=== PATIENT | male | born 1940 | race Caucasian/White ===

== ENCOUNTER 2019-03-23 03:04 | Emergency (ER) | payer MEDICARE ==
[~2019-03-23] VITALS: Ht 172.7 cm; Wt 77.1 kg
[~2019-03-23 03:04] MED LIST: AMIO200T33 PO; ASPI-498 OR; ATOR1TAB PO; BACL10TA PO; CARV6.25 PO; DOCU100T15 PO; DULO1CAP3 PO; EZET10TA6 PO; GABA300C10 PO; GLIM1TAB2 PO; LIDO5DIS21 TOP; METH5T PO; OXY5T PO; RANO1000 PO; ROPI0.5T PO; SENN1TAB14 PO
[2019-03-23 06:30] VITALS: BP 155/78
[2019-03-23] MEDS ORDERED: LIDOCAINE 1% HCL (LOCAL ANESTH.) INJ 20ML MDV ONE (07:30)
[2019-03-23] MEDS ORDERED: BACITRACIN-POLYMYXIN B TOPICAL OINT UD TOP ONE (07:45)
== END 2019-03-23 07:59 | disposition home or self-care (01) ==
LOC: ER 03:04
DX: S01.01XA Laceration without foreign body of scalp, initial encounter (principal); S61.412A Laceration without foreign body of left hand, initial encounter; S76.011A Strain of muscle, fascia and tendon of right hip, initial encounter; I48.91 Unspecified atrial fibrillation; I11.0 Hypertensive heart disease with heart failure; I50.9 Heart failure, unspecified; E78.5 Hyperlipidemia, unspecified; E07.9 Disorder of thyroid, unspecified; Z95.0 Presence of cardiac pacemaker; Z88.8 Allergy status to other drugs, medicaments and biological substances; Z79.82 Long term (current) use of aspirin; Z79.899 Other long term (current) drug therapy; Z86.73 Personal history of transient ischemic attack (TIA), and cerebral infarction without residual deficits; Z95.1 Presence of aortocoronary bypass graft; W01.198A Fall on same level from slipping, tripping and stumbling with subsequent striking against other object, initial encounter; Y93.89 Activity, other specified; Y99.8 Other external cause status; Y92.89 Other specified places as the place of occurrence of the external cause
CPT/HCPCS: 12002; 70450; 73502; J2001

== ENCOUNTER 2019-03-26 17:07 | Inpatient (IN) | payer MEDICARE | END 2019-04-06 16:40 | disposition hospice, home (50) | LOC: ICU WEST 03-29 01:49 → TELE-CENTR 04-05 18:07 → ER 17:07 → TELE-WESTW 03-27 02:45 → DOU IN ICU 04-01 16:05 → TELE 21:16 → TELE-WESTW 23:21 | PROC: 0W993ZZ Drainage of Right Pleural Cavity, Percutaneous Approach (ICD-10-PCS; principal; ~2019-03-26) | DX: J90 Pleural effusion, not elsewhere classified (principal); I50.21 Acute systolic (congestive) heart failure; N17.0 Acute kidney failure with tubular necrosis; J96.20 Acute and chronic respiratory failure, unspecified whether with hypoxia or hypercapnia; G92 Toxic encephalopathy; I13.0 Hypertensive heart and chronic kidney disease with heart failure and stage 1 through stage 4 chronic kidney disease, or unspecified chronic kidney disease; R57.9 Shock, unspecified; E87.3 Alkalosis; E87.4 Mixed disorder of acid-base balance; E11.51 Type 2 diabetes mellitus with diabetic peripheral angiopathy without gangrene; I25.5 Ischemic cardiomyopathy; I25.10 Atherosclerotic heart disease of native coronary artery without angina pectoris; E05.90 Thyrotoxicosis, unspecified without thyrotoxic crisis or storm; E11.22 Type 2 diabetes mellitus with diabetic chronic kidney disease; E78.5 Hyperlipidemia, unspecified; E11.42 Type 2 diabetes mellitus with diabetic polyneuropathy; E66.9 Obesity, unspecified; G25.3 Myoclonus; G25.81 Restless legs syndrome; G47.33 Obstructive sleep apnea (adult) (pediatric); E03.9 Hypothyroidism, unspecified; M19.90 Unspecified osteoarthritis, unspecified site; M25.78 Osteophyte, vertebrae; M48.061 Spinal stenosis, lumbar region without neurogenic claudication; N18.3 Chronic kidney disease, stage 3 (moderate); N20.0 Calculus of kidney; Z79.82 Long term (current) use of aspirin; Z95.1 Presence of aortocoronary bypass graft; Z95.810 Presence of automatic (implantable) cardiac defibrillator; Z99.81 Dependence on supplemental oxygen; E11.8 Type 2 diabetes mellitus with unspecified complications; I27.20 Pulmonary hypertension, unspecified; I48.91 Unspecified atrial fibrillation; Z79.01 Long term (current) use of anticoagulants ==

== ENCOUNTER 2019-04-27 16:20 | Emergency (ER) | payer MEDICARE ==
[~2019-04-27] VITALS: Ht 172.7 cm; Wt 99.8 kg
[2019-04-27] MEDS ORDERED: SODIUM BICARBONATE 8.4% INJ 50ML SYRINGE IV ONE (16:24)
[2019-04-27] MEDS ORDERED: DEXTROSE (50%) 50ML SYRG IV ONE (16:24)
[2019-04-27] MEDS ORDERED: CALCIUM CHLOR(10%) 100MG/ML 10ML SYRINGE IV ONE (16:24)
[2019-04-27] MEDS ORDERED: EPINEPHrine HCL 1 MG/10 ML SYRG ONE (16:35)
[2019-04-27] MEDS ORDERED: DEXTROSE 50% SYRINGE 50 ML IV ONE (16:35)
== END 2019-04-27 16:40 | disposition expired ==
LOC: EDBD 16:20 → ER 16:23
DX: I46.9 Cardiac arrest, cause unspecified (principal); I48.91 Unspecified atrial fibrillation; I11.0 Hypertensive heart disease with heart failure; I50.9 Heart failure, unspecified; E11.9 Type 2 diabetes mellitus without complications; E78.5 Hyperlipidemia, unspecified; Z86.39 Personal history of other endocrine, nutritional and metabolic disease; Z95.0 Presence of cardiac pacemaker; Z95.1 Presence of aortocoronary bypass graft; Z86.73 Personal history of transient ischemic attack (TIA), and cerebral infarction without residual deficits; Z88.6 Allergy status to analgesic agent; Z79.899 Other long term (current) drug therapy
CPT/HCPCS: 92950; 99285; J0171; J7042; 99291